=== PATIENT | male | born 1950 | race Caucasian/White ===

== ENCOUNTER → 2017-10-01 | Outpatient (CLI) | payer OTHER ==
[~2017-10-01] MED LIST: ALL300 PO; AMBCR125 PO; BENA1TAB53 PO; CLC100 PO; CTP3 PO; DLD2 PO; FRRG PO; HYDC25 PO; HYDR-4079 PO; NAPR1TAB9 PO
--- NOTE | 2017-10-01 16:14 | DIAGNOSTIC IMAGING REPORT ---
R HIP UNILATERAL MIN 2 VIEWS CLINICAL HISTORY: RIGHT HIP PAIN COMPARISON STUDY: Pelvis 06/08/2015. FINDINGS: There is again noted a right hip prosthesis. The hardware appears intact. No fracture or dislocation. 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 The visualized pelvic bones are intact. The bones are osteopenic. No significant periprosthetic lucency. IMPRESSION: Right total arthroplasty. No fracture or dislocation. Electronically signed by: Jeyson Moura M.D. 10/01/2017 4:13 PM Dictated Date/Time: 10/01/2017 4:11 PM
== END | disposition home or self-care (01) ==
LOC: C.RDSM 15:36
PROVIDERS: ATTEND Physician Assistant
DX: T84.84XA Pain due to internal orthopedic prosthetic devices, implants and grafts, initial encounter (principal); Y83.1 Surgical operation with implant of artificial internal device as the cause of abnormal reaction of the patient, or of later complication, without mention of misadventure at the time of the procedure; Y79.2 Prosthetic and other implants, materials and accessory orthopedic devices associated with adverse incidents